=== PATIENT | female | born 2000 | race African-American/Black ===

== ENCOUNTER 2023-05-26 05:55 | Inpatient (IN) | payer OTHER ==
[2023-05-26] MEDS ORDERED: ELECTROLYTE-148 SOLN 500 ML IV ONE (06:00)
[2023-05-26 06:20] VITALS: BMI 29.9
[2023-05-26] MEDS ORDERED: ELECTROLYTE-148 SOLN 1,000 ML IV SCH ×2 (06:30→08:30)
[2023-05-26] MEDS ORDERED: ONDANSETRON 4 MG/2 ML VIAL ONE (07:43)
[2023-05-26] MEDS ORDERED: morphine SULFATE/PF 1 MG/2 ML (2cc Syringe - QUVA) ONE (07:43)
[2023-05-26] MEDS ORDERED: FENTANYL CITRATE/PF 50 MCG/ML VIAL ONE ×2 (07:43→09:19)
[2023-05-26] MEDS ORDERED: KETOROLAC TROMETHAMINE 30 MG/1 ML VIAL ONE (07:43)
[2023-05-26] MEDS ORDERED: ceFAZolin SODIUM 1 GM VIAL ONE (07:43)
[2023-05-26] MEDS ORDERED: OXYTOCIN 10 UNITS/ML VIAL ONE (07:43)
[2023-05-26] MEDS ORDERED: PHENYLEPHRINE HCL 10 MG/1 ML SINGLE DOSE VIAL ONE (07:43)
[2023-05-26] MEDS ORDERED: KETAMINE HCL 200 MG/20 ML VIAL ONE (08:49)
[2023-05-26] MEDS ORDERED: IBUPROFEN 800 MG/8 ML IJ IVPB PRN (09:48)
[2023-05-26] MEDS ORDERED: METHYLERGONOVINE MALEATE 0.2 MG/1 ML AMP IM PRN (09:48)
[2023-05-26] MEDS ORDERED: ACETAMINOPHEN 1000 MG/100 ML BAG IVPB PRN (09:52)
[2023-05-26] MEDS: OXYTOCIN 20 UNITS in 0.9% NS 20 UNIT/1,000 ML INFUS.BAG IV SCH ×2 (10:25→20:10)
[2023-05-26] MEDS ORDERED: OXYTOCIN 20 UNITS in 0.9% NS 20 UNIT/1,000 ML INFUS.BAG IV ONE (10:37)
[2023-05-26] MEDS ORDERED: CITRIC ACID/SODIUM CITRATE 30 ML UNIT-DOSE CUP PO ONE (12:15)
[2023-05-26] MEDS: FERROUS SO4 325 MG TABLET (FP) PO SCH ×2 (15:28→21:12)
[2023-05-26] MEDS: PRENATAL VITAMINS W/ FOLIC ACID TABLET (FP) PO SCH (15:28)
[2023-05-26] MEDS: SIMETHICONE 80 MG TAB.CHEW (FP) PO PRN (21:12)
[2023-05-26] MEDS: SENNOSIDES/DOCUSATE COMBO (SENNA PLUS) TABLET (UD) PO PRN (21:13)
[2023-05-26] MEDS ORDERED: oxyCODONE HCL 5 MG TABLET PO PRN ×2 (21:48)
[2023-05-27] MEDS: IBUPROFEN 600 MG TABLET (FP) PO PRN ×5 (02:04→23:18)
[2023-05-27] MEDS: SIMETHICONE 80 MG TAB.CHEW (FP) PO PRN ×4 (02:04→17:42)
[2023-05-27 08:14] LABS: BASO % 0.2 % (0-2.0); EOS % 0.5 % (0-4.5); HEMATOCRIT 28.6 % (32.4-45.2); HEMOGLOBIN 9.8 GM/dL (10.7-15.3); LYMPH % 18.7 % (8-40); MCH 30.6 pg (25.7-33.7); MCHC 34.1 g/dl (32.0-36.0); MEAN CELL VOLUME 89.9 fl (80-96); MEAN PLT VOLUME 7.1 fl (7.5-11.1); MONO % 6.8 % (3.8-10.2); NEUT % 73.8 % (42.8-82.8); PLATELET COUNT 199 10^3/uL (134-434); RBC 3.19 M/mm3 (3.60-5.2); RDW 14.4 % (11.6-15.6); WHITE BLOOD COUNT 11.1 K/mm3 (4.0-10.0)
[2023-05-27] MEDS: FERROUS SO4 325 MG TABLET (FP) PO SCH ×2 (09:10→21:05)
[2023-05-27] MEDS: PRENATAL VITAMINS W/ FOLIC ACID TABLET (FP) PO SCH (09:10)
[2023-05-27] MEDS ORDERED: BISACODYL 10 MG SUPP.RECT RC PRN (09:48)
[2023-05-27] MEDS: ACETAMINOPHEN 325 MG TABLET (FP) PO PRN (19:53)
[2023-05-27] MEDS: SENNOSIDES/DOCUSATE COMBO (SENNA PLUS) TABLET (UD) PO PRN (19:53)
[2023-05-28] MEDS: IBUPROFEN 600 MG TABLET (FP) PO PRN (05:25)
[2023-05-28] MEDS: ACETAMINOPHEN 325 MG TABLET (FP) PO PRN ×2 (09:43→15:21)
[2023-05-28] MEDS: FERROUS SO4 325 MG TABLET (FP) PO SCH ×2 (09:43→21:12)
[2023-05-28] MEDS: PRENATAL VITAMINS W/ FOLIC ACID TABLET (FP) PO SCH (09:43)
[2023-05-28] MEDS: SIMETHICONE 80 MG TAB.CHEW (FP) PO PRN ×2 (09:44→19:03)
[2023-05-28] MEDS: SENNOSIDES/DOCUSATE COMBO (SENNA PLUS) TABLET (UD) PO PRN (21:12)
[2023-05-29] MEDS: PRENATAL VITAMINS W/ FOLIC ACID TABLET (FP) PO SCH (09:59)
[2023-05-29] MEDS: FERROUS SO4 325 MG TABLET (FP) PO SCH (09:59)
[2023-05-29 10:16] VITALS: BP 122/76; PULSE 94; RESP 18; TEMP 99.1
== END 2023-05-29 12:10 | disposition home or self-care (01) | DRG 788 ==
LOC: JLDR 05:55 → J3W 12:42
PROVIDERS: ADMIT Obstetrics & Gynecology; ATTEND Obstetrics & Gynecology
PROC: 10D00Z1 Extraction of Products of Conception, Low, Open Approach (ICD-10-PCS; principal; 2023-05-26)
DX: O41.03X0 Oligohydramnios, third trimester, not applicable or unspecified (principal); O32.1XX0 Maternal care for breech presentation, not applicable or unspecified; O36.5930 Maternal care for other known or suspected poor fetal growth, third trimester, not applicable or unspecified; Z3A.37 37 weeks gestation of pregnancy; Z37.0 Single live birth; O69.81X0 Labor and delivery complicated by cord around neck, without compression, not applicable or unspecified
CPT/HCPCS: 36415; 85025; 88307-TC; 94010